=== PATIENT | female | born 1995 | race Caucasian/White ===

== ENCOUNTER 2017-04-16 22:24 | Emergency (ER) | payer OTHER ==
[~2017-04-16] VITALS: Ht 157.5 cm; Wt 51.7 kg
[2017-04-16] MEDS ORDERED: MINOCIN50 MG (22:33)
== END 2017-04-17 00:12 | disposition home or self-care (01) ==
LOC: ER 22:24
DX: L50.8 Other urticaria (principal)

== ENCOUNTER 2020-01-21 19:40 | Emergency (ER) | payer OTHER ==
[~2020-01-21] VITALS: Ht 160 cm; Wt 59.0 kg
[~2020-01-21 19:40] MED LIST: MINOCIN50 MG
== END 2020-01-21 23:04 | disposition home or self-care (01) ==
LOC: ER 19:40
DX: M94.0 Chondrocostal junction syndrome [Tietze] (principal); F41.8 Other specified anxiety disorders

== ENCOUNTER 2021-06-30 07:28 | Outpatient (CLI) | payer OTHER | END 2021-06-30 07:29 | disposition home or self-care (01) | LOC: NUCLEAR 07:28 | PROVIDERS: ATTEND Internal Medicine Gastroenterology | DX: K31.84 Gastroparesis (principal) | CPT/HCPCS: 78264; A9541 ==

== ENCOUNTER 2022-10-12 16:00 | Emergency (ER) | payer OTHER ==
[~2022-10-12] VITALS: Ht 157.5 cm; Wt 58.1 kg
[2022-10-12] MEDS ORDERED: ELAVIL (16:34)
[2022-10-12] MEDS ORDERED: VERELAN PM100 MG (16:34)
[2022-10-12] MEDS ORDERED: RIZATRIPTAN5 MG (16:35)
== END 2022-10-12 19:44 | disposition home or self-care (01) ==
LOC: ER 16:00
DX: U07.1 COVID-19 (principal); R53.81 Other malaise; Z88.1 Allergy status to other antibiotic agents